=== PATIENT | male | born 1995 | race Caucasian/White ===

== ENCOUNTER 2018-12-07 20:32 | Emergency (ER) | payer MEDICAID, OTHER ==
[~2018-12-07] VITALS: Ht 185.4 cm; Wt 104.7 kg
[2018-12-07 20:33] VITALS: BP 140/98
[2018-12-07] MEDS ORDERED: BACITRACIN ZINC OINT 500U/GM, 0.9 GM ONE ×2 (21:03→21:04)
== END 2018-12-07 22:24 | disposition home or self-care (01) ==
LOC: ED 22:17
DX: S60.221A Contusion of right hand, initial encounter (principal); W20.8XXA Other cause of strike by thrown, projected or falling object, initial encounter; Y93.89 Activity, other specified; Y92.009 Unspecified place in unspecified non-institutional (private) residence as the place of occurrence of the external cause; Y99.8 Other external cause status
CPT/HCPCS: 99283

== ENCOUNTER 2019-01-27 23:13 | Emergency (ER) | payer OTHER ==
[~2019-01-27] VITALS: Ht 185.4 cm; Wt 100.0 kg
[2019-01-27] MEDS ORDERED: TRANEXAMIC ACID 100 MG/ML, 10ML ONE (23:15)
[2019-01-27] MEDS ORDERED: MORPHINE SULFATE 4 MG/ML, 1ML ONE (23:21)
[2019-01-27] MEDS ORDERED: ONDANSETRON 2MG/ML, 2ML ONE (23:21)
[2019-01-27] MEDS ORDERED: LAMO150T3 PO (23:24)
[2019-01-27] MEDS ORDERED: CEFAZOLIN PMX 1GM/50ML 50 ML IVPB ONE (23:30)
[2019-01-27] MEDS ORDERED: MORPHINE SULFATE 4 MG/ML, 1ML IV PRN (23:30)
[2019-01-27] MEDS ORDERED: SODIUM CHLORIDE FLUSH 10ML SYR IVF ONE (23:30)
[2019-01-27] MEDS ORDERED: SODIUM CHLORIDE 0.9% 1,000ML IVBOLUS ONE (23:30)
[2019-01-27] MEDS ORDERED: ONDANSETRON 2MG/ML, 2ML IVPush ONE (23:30)
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
[2019-01-27] MEDS ORDERED: CEFAZOLIN PMX 1GM/50ML 50 ML ONE (23:36)
[2019-01-27 23:52] LABS: BASOPHILS # (AUTO) 0.03 x10^3/uL (0-0.1); BASOPHILS % (AUTO) 0 % (0-1); EOSINOPHILS # (AUTO) 0.08 x10^3/uL (0-0.4); EOSINOPHILS % (AUTO) 1 % (1-7); LYMPHOCYTES # (AUTO) 1.94 x10^3/uL (1-3.4); LYMPHOCYTES % (AUTO) 26 % (22-44); MD NO; MEAN CORPUSCULAR HEMOGLOBIN 32.9 pg (27.5-34.5); MEAN CORPUSCULAR HGB CONC 33.2 g/dL (33.2-36.2); MEAN CORPUSCULAR VOLUME 99.3 fL (81-97); MEAN PLATELET VOLUME 8.6 fL (7.4-10.4); MONOCYTES # (AUTO) 0.51 x10^3/uL (0.2-0.8); MONOCYTES % (AUTO) 7 % (2-9); NEUTROPHILS # (AUTO) 5.01 x10^3/uL (1.8-6.8); NEUTROPHILS % (AUTO) 66 % (42-75); PLATELET COUNT 169 x10^3/uL (130-400); RED BLOOD COUNT 4.24 x10^6/uL (4.38-5.82); RED CELL DISTRIBUTION WIDTH 13.4 % (9.4-14.8)
--- NOTE | 2019-01-27 23:57 | NUR ---
ERP IN TO REASSESS. CALL TO BE PLACED TO HAND SPECIALIST. BLEEDING CONTINUES. PRESSURE DRESSING REPLACED BY ERP.
[2019-01-28] MEDS ORDERED: TRANEXAMIC ACID 100 MG/ML, 10ML TP ONE
[2019-01-28] MEDS ORDERED: LIDOCAINE-MPF 1%, 5ML ONE (00:14)
[2019-01-28 01:12] VITALS: BP 131/78
--- NOTE | 2019-01-28 01:12 | NUR ---
LUNCH RN: PT RESTING IN ROOM. NO BLEEDING, AT THIS TIME. VSS.
[2019-01-28] MEDS ORDERED: NEOSPORIN OINT. PKT 1 PACKET ONE (01:47)
[2019-01-28] MEDS ORDERED: BACITRACIN ZINC OINT 500U/GM, 0.9 GM TP SCH (02:00)
== END 2019-01-28 01:59 | disposition home or self-care (01) ==
LOC: ED 23:31
DX: S61.411A Laceration without foreign body of right hand, initial encounter (principal); W26.8XXA Contact with other sharp object(s), not elsewhere classified, initial encounter; Y93.89 Activity, other specified; Y92.009 Unspecified place in unspecified non-institutional (private) residence as the place of occurrence of the external cause; Y99.8 Other external cause status
CPT/HCPCS: 12042; 36415; 73130; 85025; 96365; 96375; 99284; J0690; J2270; J2405; J7030